=== PATIENT | female | born 1965 | race African-American/Black ===

== ENCOUNTER → 2016-09-25 | Outpatient (CLI) | payer OTHER ==
[~2016-09-25] MED LIST: AMLO5TAB2 PO; AMOX500C PO; ASPI81CH CHEW; DICL50TA3 PO; IPRA17I INH; LEVO-86 PO; MEDR4PAK PO; METO50TA PO; POTA1TAB4 PO; VALT1TAB PO; VENTAER INH
[2016-09-25 07:51] LABS: HEMATOCRIT 37.9 % (35.0-46.0); MEAN CELL VOLUME 81.8 FL (80.0-100.0); MEAN CORPUSCULAR HEMOGLOBIN 27.5 PG (27.0-34.0); MEAN CORPUSCULAR HGB CONC 33.6 % (32.0-36.0); PLATELET COUNT 249 TH/MM3 (150-450); RED BLOOD COUNT 4.64 MIL/MM3 (4.00-5.30); RED CELL DISTRIBUTION WIDTH 14.6 % (11.6-17.2); REVIEW FLAG FINAL; WHITE BLOOD COUNT 4.3 TH/MM3 (4.0-11.0)
[2016-09-25 08:29] LABS: ALKALINE PHOSPHATASE 75 U/L (45-117); HDL CHOLESTEROL 69.1 MG/DL (40.0-60.0); TOTAL BILIRUBIN ADULT 0.4 MG/DL (0.2-1.0)
[2016-09-25 08:36] LABS: ALT (GPT) 25 U/L (10-53); ANION GAP 8 MEQ/L (5-15); AST (GOT) 18 U/L (15-37); BLOOD UREA NITROGEN 13 MG/DL (7-18); CHLORIDE 107 MEQ/L (98-107); GLOMERULAR FILTRATION RATE 127 ML/MIN (>89); GLUCOSE,FASTING 92 MG/DL (74-99); LDL CHOLESTEROL 74 MG/DL (0-99); POTASSIUM 4.3 MEQ/L (3.5-5.1); SODIUM (NA) 143 MEQ/L (136-145)
[2016-09-25 16:32] LABS: HEMOGLOBIN A1b 1.7 %; HEMOGLOBIN Ao 85.9 %; HEMOGLOBIN LA1C 1.8 %; HEMOGLOBIN P3 3.5 %
== END ==
LOC: CLAB 07:22
PROVIDERS: ATTEND Family Medicine
DX: R73.9 Hyperglycemia, unspecified (principal)
CPT/HCPCS: 36415; 80053; 80061; 83036; 84443; 85027

== ENCOUNTER 2016-11-09 19:09 | Emergency (ER) | payer OTHER ==
[2016-11-09 19:12] VITALS: BP 180/91; PULSE 74; RESP 18; TEMP 98.7; O2SAT 97
[2016-11-09] MEDS ORDERED: ASPI81CH CHEW (20:55)
[2016-11-09] MEDS ORDERED: METO50TA PO (20:55)
[2016-11-09] MEDS ORDERED: AMLO5TAB2 PO (20:55)
[2016-11-09] MEDS ORDERED: DICL50TA3 PO (20:55)
[2016-11-09] MEDS ORDERED: POTA1TAB4 PO (20:55)
[2016-11-09] MEDS ORDERED: VALT1TAB PO (20:55)
[2016-11-09] MEDS ORDERED: LEVO-86 PO (20:55)
[2016-11-09] MEDS ORDERED: MEDR4PAK PO (21:05)
[2016-11-09] MEDS ORDERED: VENTAER INH (21:05)
[2016-11-09] MEDS ORDERED: AMOX500C PO (21:05)
[2016-11-09] MEDS ORDERED: IPRA17I INH (22:11)
== END 2016-11-09 20:05 | disposition left against medical advice (07) ==
LOC: NED 19:09
DX: R05 Cough (principal)
CPT/HCPCS: 99281

== ENCOUNTER → 2016-12-17 | Outpatient (CLI) | payer OTHER ==
[~2016-12-17] VITALS: Ht 170.2 cm; Wt 97.0 kg
[~2016-12-17] MED LIST changes: +CHLORHEXIDINE GLUCONATE 2 % 1 PACK (2 CLOTHS) TOPICAL PRN; +INSULIN HUMAN REGULAR 1,000 UNITS/10 ML VIAL SQ PRN; +LACTATED RINGER'S 1000 ML IV PRN; +METOPROLOL TARTRATE 25 MG TAB PO PRN; +POVIDONE IODINE 5% (ANTISEPSIS KIT) 4 APPLICATIONS EACH NARE PRN; +PROPOFOL 200 MG/20 ML AMP IV ONE; +SODIUM CHLORID 0.9% 500 ML IV PRN; -VENTAER INH
[2016-12-17 12:48] VITALS: BP 119/79; PULSE 60; RESP 16; TEMP 98; O2SAT 96
--- NOTE | 2016-12-17 15:24 | PD.PROCEDR ---
GI Procedure PROCEDURE PERFORMED Colonoscopy diagnostic INDICATION FOR PROCEDURE History of polyps, internal hemorrhoids PROCEDURE: The procedure, risks and benefits were discussed with Ms. Sorto and informed consent was obtained. Anesthesia sedated her with Diprivan. She was placed in the left lateral decubitus position. Colonoscopy: The Pentax videoscope was introduced through the rectum and advanced to cecum where the ileocecal valve and appendiceal orifice were identified. Retroflexion was performed in the rectum. Colonic prep was fair FINDINGS: Colonic withdrawal time greater than 6 minutes as the scope was slowly withdrawn colonic mucosa was carefully inspected this was noted to be unremarkable and within normal limits the hallway through the patient was noted to have a few scattered diverticuli retroflexion in the rectum was unremarkable and rectal examination grade 1 external hemorrhoids ESTIMATED BLOOD LOSS: None SPECIMENS REMOVED: None COMPLICATIONS: None IMPRESSION: Diverticulosis External hemorrhoids PLAN: High-fiber diet Avoid straining when defecating Colonoscopy in 5 years Follow-up as needed Kody Wakefield MD Dec 17, 2016 15:24
[2016-12-17 15:40] VITALS: BP 134/78; PULSE 58; RESP 16; TEMP 98; O2SAT 100
--- NOTE | 2016-12-18 15:01 | EKG ---
Date Performed: 12/17/2016 Time Performed: 12:13:09 PTAGE: 51 years EKG: SINUS BRADYCARDIA BORDERLINE ECG NO PREVIOUS TRACING DOCTOR: Rakesh Lam Interpretating Date/Time 12/18/2016 14:57:09
== END ==
LOC: HEND 11:50
PROVIDERS: ATTEND Internal Medicine Gastroenterology
DX: Z12.11 Encounter for screening for malignant neoplasm of colon (principal); R00.1 Bradycardia, unspecified; K64.4 Residual hemorrhoidal skin tags; K57.90 Diverticulosis of intestine, part unspecified, without perforation or abscess without bleeding; Z86.010 Personal history of colon polyps; K64.8 Other hemorrhoids
CPT/HCPCS: 93005

== ENCOUNTER → 2016-12-19 | Outpatient (CLI) | payer OTHER ==
[~2016-12-19] MED LIST changes: -AMOX500C PO; -CHLORHEXIDINE GLUCONATE 2 % 1 PACK (2 CLOTHS) TOPICAL PRN; -INSULIN HUMAN REGULAR 1,000 UNITS/10 ML VIAL SQ PRN; -IPRA17I INH; -LACTATED RINGER'S 1000 ML IV PRN; -MEDR4PAK PO; -METOPROLOL TARTRATE 25 MG TAB PO PRN; -POVIDONE IODINE 5% (ANTISEPSIS KIT) 4 APPLICATIONS EACH NARE PRN; -PROPOFOL 200 MG/20 ML AMP IV ONE; -SODIUM CHLORID 0.9% 500 ML IV PRN
== END ==
LOC: CLAB 08:40
PROVIDERS: ATTEND Family Medicine
DX: E03.9 Hypothyroidism, unspecified (principal)
CPT/HCPCS: 36415; 84443

== ENCOUNTER → 2017-06-25 | Outpatient (CLI) | payer OTHER ==
[~2017-06-25] MED LIST changes: +ASPI-516 CHEW; -ASPI81CH CHEW; +VITA200C3 PO; +VITA250T5 PO
== END ==
LOC: CLAB 13:43
PROVIDERS: ATTEND Family Medicine
DX: E03.9 Hypothyroidism, unspecified (principal)
CPT/HCPCS: 36415; 82330; 83970; 84443

== ENCOUNTER → 2017-09-10 | Outpatient (CLI) | payer OTHER ==
[2017-09-10 07:12] LABS: AUTOMATED NEUTROPHIL # 1.8 TH/MM3 (1.8-7.7); BASOPHIL % 0.5 % (0.0-2.0); EOSINOPHIL # 0.1 TH/MM3 (0-0.4); EOSINOPHIL % 1.6 % (0.0-4.0); HEMOGLOBIN 13.3 GM/DL (11.6-15.3); LYMPH % 45.9 % (9.0-44.0); LYMPHOCYTE # 1.9 TH/MM3 (1.0-4.8); MEAN CELL VOLUME 83.4 FL (80.0-100.0); MEAN CORPUSCULAR HEMOGLOBIN 28.6 PG (27.0-34.0); MEAN CORPUSCULAR HGB CONC 34.2 % (32.0-36.0); MEAN PLATELET VOLUME 7.2 FL (7.0-11.0); MONO % 7.6 % (0.0-8.0); MONOCYTE # 0.3 TH/MM3 (0-0.9); NEUT % 44.4 % (16.0-70.0); PLATELET COUNT 249 TH/MM3 (150-450); RED BLOOD COUNT 4.67 MIL/MM3 (4.00-5.30); RED CELL DISTRIBUTION WIDTH 15.2 % (11.6-17.2); WHITE BLOOD COUNT 4.1 TH/MM3 (4.0-11.0)
[2017-09-10 07:32] LABS: BICARBONATE 30.5 MEQ/L (21.0-32.0); CALCIUM 8.8 MG/DL (8.5-10.1); CREATININE 0.74 MG/DL (0.50-1.00)
== END ==
LOC: CLAB 06:42
DX: I10 Essential (primary) hypertension (principal)
CPT/HCPCS: 36415; 80048; 85025